=== PATIENT | female | born 1985 | race Caucasian/White ===

== ENCOUNTER 2017-02-24 13:54 | Emergency (ER) | payer SELFPAY ==
[~2017-02-24 13:54] MED LIST: AMOXICILLIN875 M1 PO; BACTRIM DS TAB1 EAC2 PO; CIPRODEX OTIC7.5 M1 OT; CLONAZEPAM1 M2 PO; CLONIDINE HCL0.1 M2 PO; GLUCOPHAGE XR500 M1 PO; IBUPROFEN800 M1 PO; KLONOPIN1 M1 PO; LAMICTAL150 M1 PO; NICOTINE PATCH1 EAC2 TP; NORCO 5-325 TA1 EACH PO; NORCO 5/3251 TAB PO; PROZAC10 M1 PO; TRAZODONE HCL50 M1 PO; TRENTELLIX PO; ZOFRAN ODT4 MG PO
[2017-02-24] MEDS ORDERED: LAMICTAL200 M2 PO (14:07)
[2017-02-24 14:41] LABS: BASO % 0.2 % (0-2); EOS % 0.4 % (0-7); HCT-HEMATOCRIT 39.9 % (34.0-49.0); LYMPH % 41.8 % (20-45); LYMPH ABSOLUTE COUNT 2.1 tho/cmm (0.8-4.5); MCHC MEAN CORPUSCULAR HGB CONC 35.1 % (32.0-36.0); MCV (MEAN CELL VOLUME) 91.3 fl (82.0-96.0); MEAN PLATELET VOLUME 11.1 cmc (9.4-12.4); MONO % 5.1 % (0-12); MONOCYTE ABSOLUTE COUNT 0.3 tho/cmm (0.0-1.2); NEUTROPHIL ABSOLUTE COUNT 2.7 tho/cmm (1.6-8.0); NEUTROPHIL-AUTOMATED 2.7 tho/cmm (1.6-8.0); NEUTROPHILS % 52.5 % (40-80); PLATELET COUNT 139 tho/cmm (150-450); RED BLOOD COUNT 4.37 mil/cmm (4.00-5.20); RED CELL DISTRIBUTION WIDTH 12.5 % (12.4-16.4); WHITE BLOOD COUNT 5.1 tho/cmm (4.0-10.0)
[2017-02-24 14:53] LABS: ANION GAP 11 mmol/L (0-20); BLOOD UREA NITROGEN 7 mg/dl (6-24); CARBON DIOXIDE-VENOUS 26 mmol/L (22-32); CHLORIDE 108 mmol/l (96-110); CREATININE 0.92 mg/dl (0.50-1.10); GLUCOSE 103 mg/dL (70-110); POTASSIUM 3.8 mmol/L (3.7-5.1); SODIUM 141 mmol/L (135-145); eGFR VALUE FOR BLACK >90 mL/Min
[2017-05-02] MEDS ORDERED: ZOFRAN ODT4 MG PO (18:25)
[2017-05-02] MEDS ORDERED: NORCO 5-325 TA1 EACH PO (18:25)
[2017-05-02] MEDS ORDERED: KEFLEX500 M4 PO (18:25)
[2017-06-09] MEDS ORDERED: AMBIEN10 M1 PO (14:16)
[2017-06-09] MEDS ORDERED: BRINTELLIX10 M1 PO (14:17)
== END 2017-02-24 15:19 ==
LOC: EDMED 13:54
PROVIDERS: Emergency Medicine
DX: G40.909 Epilepsy, unspecified, not intractable, without status epilepticus (principal); Z79.899 Other long term (current) drug therapy; F17.200 Nicotine dependence, unspecified, uncomplicated
CPT/HCPCS: J2060

== ENCOUNTER 2017-03-02 11:57 | Emergency (ER) | payer SELFPAY ==
[~2017-03-02 11:57] MED LIST changes: +LAMICTAL200 M2 PO
[2017-03-02] MEDS ORDERED: NORCO 5-325 TA1 EACH PO (13:58)
[2017-05-02] MEDS ORDERED: KEFLEX500 M4 PO (18:25)
[2017-05-02] MEDS ORDERED: ZOFRAN ODT4 MG PO (18:25)
[2017-05-02] MEDS ORDERED: NORCO 5-325 TA1 EACH PO (18:25)
[2017-06-09] MEDS ORDERED: AMBIEN10 M1 PO (14:16)
[2017-06-09] MEDS ORDERED: BRINTELLIX10 M1 PO (14:17)
== END 2017-03-02 14:21 ==
LOC: EDMED 11:57
DX: S20.211A Contusion of right front wall of thorax, initial encounter (principal); G40.909 Epilepsy, unspecified, not intractable, without status epilepticus; Z79.899 Other long term (current) drug therapy; F17.200 Nicotine dependence, unspecified, uncomplicated; W18.30XA Fall on same level, unspecified, initial encounter
CPT/HCPCS: J1885